=== PATIENT | female | born 1935 | race Caucasian/White ===

== ENCOUNTER → 2017-09-20 | Outpatient (CLI) | payer MEDICARE, OTHER | LOC: OD 10:37 | PROVIDERS: ATTEND Internal Medicine Cardiovascular Disease | DX: I10 Essential (primary) hypertension (principal); Z53.8 Procedure and treatment not carried out for other reasons ==

== ENCOUNTER → 2017-09-28 | Outpatient (CLI) | payer MEDICARE, OTHER ==
[2017-09-28 14:01] LABS: ANION GAP 13 (5-19); BLOOD UREA NITROGEN 20 mg/dL (7-20); CALCIUM 9.2 mg/dL (8.4-10.2); CARBON DIOXIDE 26 mmol/L (22-30); CHLORIDE 101 mmol/L (98-107); GLUCOSE 92 mg/dL (75-110); POTASSIUM 4.5 mmol/L (3.6-5.0); SODIUM 139.8 mmol/L (137-145)
== END ==
LOC: OD 12:35
PROVIDERS: ATTEND Internal Medicine Cardiovascular Disease
DX: I10 Essential (primary) hypertension (principal)
CPT/HCPCS: 36415; 80048

== ENCOUNTER → 2018-05-11 | Outpatient (CLI) | payer MEDICARE, OTHER ==
[2018-05-11 12:23] LABS: ALANINE AMINOTRANSFERASE 15 U/L (9-52); ALBUMIN 3.9 g/dL (3.5-5.0); ALKALINE PHOSPHATASE 58 U/L (38-126); ANION GAP 8 (5-19); ASPARTATE AMINO TRANSFERASE 21 U/L (14-36); BILIRUBIN,DIRECT 0.3 mg/dL (0.0-0.4); BLOOD UREA NITROGEN 19 mg/dL (7-20); CALCIUM 9.1 mg/dL (8.4-10.2); CARBON DIOXIDE 29 mmol/L (22-30); CHLORIDE 101 mmol/L (98-107); CHOLESTEROL 140.37 mg/dL (0-200); GLUCOSE 142 mg/dL (75-110); POTASSIUM 4.9 mmol/L (3.6-5.0); SODIUM 138.2 mmol/L (137-145); TRIGLYCERIDES 120 mg/dL (<150)
[2018-05-11 12:34] LABS: DIRECT LDL 69 mg/dL (<100)
== END ==
LOC: OD 10:30
PROVIDERS: ATTEND Physician Assistant
DX: I10 Essential (primary) hypertension (principal); E78.2 Mixed hyperlipidemia; Z79.899 Other long term (current) drug therapy
CPT/HCPCS: 36415; 80048; 80061; 80076

== ENCOUNTER → 2019-11-05 | Outpatient (CLI) | payer MEDICARE, OTHER ==
[2019-11-05 10:56] LABS: ALBUMIN 4.2 g/dL (3.5-5.0); ALKALINE PHOSPHATASE 58 U/L (38-126); ANION GAP 10 (5-19); ASPARTATE AMINO TRANSFERASE 23 U/L (14-36); BLOOD UREA NITROGEN 23 mg/dL (7-20); CALCIUM 9.1 mg/dL (8.4-10.2); CARBON DIOXIDE 26 mmol/L (22-30); CHLORIDE 102 mmol/L (98-107); CHOLESTEROL 147.05 mg/dL (0-200); GLUCOSE 146 mg/dL (75-110); POTASSIUM 4.8 mmol/L (3.6-5.0); TOTAL PROTEIN 7.3 g/dL (6.3-8.2); TRIGLYCERIDES 142 mg/dL (<150)
[2019-11-05 11:12] LABS: DIRECT LDL 72 mg/dL (<100)
== END ==
LOC: OD 10:07
PROVIDERS: ATTEND Physician Assistant
DX: E78.2 Mixed hyperlipidemia (principal); Z79.899 Other long term (current) drug therapy; I10 Essential (primary) hypertension
CPT/HCPCS: 36415; 80048; 80061; 80076

== ENCOUNTER → 2020-01-28 | Outpatient (CLI) | payer MEDICARE, OTHER ==
[2020-01-28 12:23] LABS: ALBUMIN 4.3 g/dL (3.5-5.0); ALKALINE PHOSPHATASE 62 U/L (38-126); ANION GAP 8 (5-19); ASPARTATE AMINO TRANSFERASE 24 U/L (14-36); BILIRUBIN,DIRECT 0.3 mg/dL (0.0-0.4); BILIRUBIN,TOTAL 0.9 mg/dL (0.2-1.3); BLOOD UREA NITROGEN 20 mg/dL (7-20); CALCIUM 8.9 mg/dL (8.4-10.2); CARBON DIOXIDE 27 mmol/L (22-30); CHLORIDE 105 mmol/L (98-107); CHOLESTEROL 170.69 mg/dL (0-200); GLUCOSE 141 mg/dL (75-110); POTASSIUM 4.5 mmol/L (3.6-5.0); TOTAL PROTEIN 7.5 g/dL (6.3-8.2); TRIGLYCERIDES 147 mg/dL (<150)
[2020-01-28 12:34] LABS: DIRECT LDL 95 mg/dL (<100)
== END ==
LOC: OD 11:36
PROVIDERS: ATTEND Physician Assistant
DX: E78.2 Mixed hyperlipidemia (principal); I10 Essential (primary) hypertension; E87.5 Hyperkalemia; Z79.899 Other long term (current) drug therapy
CPT/HCPCS: 36415; 80048; 80061; 80076